=== PATIENT | male | born 1960 ===

== ENCOUNTER 2018-03-04 12:28 | Emergency (ER) | payer MEDICARE, BC ==
[2018-03-04 13:31] VITALS: BP 141/85
--- NOTE | 2018-03-04 14:13 | RAD ---
INDICATION: Right great toe injury. TECHNIQUE: 3 views of the right great toe were obtained. FINDINGS: There is soft tissue swelling adjacent to the distal phalanx. The bones are normal alignment. No fracture is seen. IMPRESSION: SOFT TISSUE SWELLING, NO FRACTURE IS SEEN.
--- NOTE | 2018-03-04 14:50 | UC ---
Lower Extremity/Ankle HPI - HPI Summary HPI Summary: 57 yo male with DM states he got hypoglycemic last PM and injured his right great toe avulsed nail his mom has been ill for 2 weeks and yesterday he has not been eating properly - History of Current Complaint Chief Complaint: UCLowerExtremity Stated Complaint: RT FOOT/BIG TOE COMP Time Seen by Provider: 03/04/18 13:30 Hx Obtained From: Patient Onset/Duration: Sudden Onset, Lasting Hours Severity Initially: Moderate Severity Currently: Mild Pain Intensity: 3 Pain Scale Used: 0-10 Numeric Aggravating Factor(s): Standing, Ambulation Alleviating Factor(s): Rest, Elevation Able to Bear Weight: Yes - Allergies/Home Medications Allergies/Adverse Reactions: Allergies Allergy/AdvReac Type Severity Reaction Status Date / Time hydromorphone [From Dilaudid] Allergy Unknown Headache Verified 03/04/18 13:13 niacin Allergy Unknown Rash Verified 03/04/18 13:13 Home Medications: Home Medications Lisinopril TAB* [Prinivil TAB*] 5 mg PO DAILY 03/04/18 [History Confirmed ] Sertraline* [Zoloft*] 25 mg PO DAILY 03/04/18 [History Confirmed 03/04/18] PMH/Surg Hx/FS Hx/Imm Hx Endocrine History: Diabetes Cardiovascular History: Hypertension GI/ History: Renal Disease Neurological History: CVA - Surgical History Surgical History: Yes Surgery Procedure, Year, and Place: kidney transplant- 04/2001. [email or web address] - Family History Known Family History: Positive: Hypertension, Diabetes - Social History Alcohol Use: None Substance Use Type: None Smoking Status (MU): Never Smoked Tobacco - Immunization History Most Recent Tetanus Shot: MARCH 2013 Review of Systems Constitutional: Negative Skin: Negative Eyes: Negative ENT: Negative Respiratory: Negative Cardiovascular: Negative Gastrointestinal: Negative Genitourinary: Negative Motor: Negative Neurovascular: Negative Musculoskeletal: Arthralgia Neurological: Negative Psychological: Negative All Other Systems Reviewed And Are Negative: Yes Physical Exam Triage Information Reviewed: Yes Appearance: Well-Appearing, No Pain Distress, Well-Nourished Vital Signs: Initial Vital Signs Temp 98.9 F 03/04/18 13:20 Pulse 86 03/04/18 13:20 Resp 18 03/04/18 13:20 BP 141/85 03/04/18 13:20 Pulse Ox 98 03/04/18 13:20 ENT: Negative: Hearing grossly normal - hearing aidss, Nasal drainage, TMs normal, Trismus, Muffled voice, Hoarse voice Neck: Positive: Supple, Nontender, No Lymphadenopathy Respiratory: Positive: Lungs clear, Normal breath sounds, No respiratory distress Cardiovascular: Positive: RRR, No Murmur Neurological: Positive: Alert Psychological Exam: Normal Diagnostics - Radiology No standard instances Xray Interpretation: No Acute Changes Radiology Interpretation Completed By: Radiologist Lower Extremity Course/Dx - Differential Dx/Diagnosis Provider Diagnoses: rigth great toe avulsion Discharge - Sign-Out/Discharge Documenting (check all that apply): Discharge - Discharge Plan Condition: Stable Disposition: HOME Prescriptions: Cephalexin CAP* [Keflex CAP*] 500 mg PO TID #15 cap Patient Education Materials: Nail Avulsion (ED) Referrals: Ana Cabral MD [Primary Care Provider] - Additional Instructions: gently clean twice daily with soap and water dry apply thin film of antibiotic oint dressing I suggest you see your brass pourer next week - Billing Disposition and Condition Condition: STABLE Disposition: HOME Images Feet (Multiple View): 1 - avulsed nail/tender DP
== END 2018-03-04 14:54 | disposition home or self-care (01) ==
LOC: UCCORT 12:28
DX: S91.101A Unspecified open wound of right great toe without damage to nail, initial encounter (principal); X58.XXXA Exposure to other specified factors, initial encounter; Y92.9 Unspecified place or not applicable; Z88.8 Allergy status to other drugs, medicaments and biological substances
CPT/HCPCS: 99213; G0463